=== PATIENT | male | born 1965 | race Caucasian/White ===

== ENCOUNTER 2023-07-19 08:32 | Day surgery (SDC) | payer OTHER ==
[2023-07-19] VITALS (8 sets, daily range): BP systolic 121–147; BP diastolic 72–95; PULSE 62–81; RESP 16; TEMP 97.8; O2SAT 95–98
[~2023-07-19] VITALS: Ht 177.8 cm; Wt 80.4 kg
[2023-07-19] MEDS ORDERED: CEVI30CA12 PO (08:56)
[2023-07-19] MEDS ORDERED: HYDR-3973 PO (08:56)
[2023-07-19] MEDS ORDERED: VITA-268 PO (08:56)
[2023-07-19] MEDS ORDERED: LYR25C PO (08:56)
[2023-07-19] MEDS ORDERED: FAMO20TA8 PO (08:56)
[2023-07-19] MEDS ORDERED: VALA500T41 PO (08:56)
[2023-07-19] MEDS ORDERED: LEVO50TA PO (08:56)
[2023-07-19] MEDS ORDERED: LIDOcaine 1% 30ml preserv. free vial SQ STA (08:57)
--- NOTE | 2023-07-19 09:40 | NUR ---
Dr. Navas at bedside for procedure. Unable to visualize node on ultrasound. Dr. Navas will take the patient to CT to find the node for marking and then use US guided for procedure.
== END 2023-07-19 10:55 | disposition home or self-care (01) ==
LOC: SSTAY O 08:32
PROVIDERS: ATTEND Radiology Diagnostic Radiology
DX: R59.0 Localized enlarged lymph nodes (principal); C09.9 Malignant neoplasm of tonsil, unspecified; Z79.899 Other long term (current) drug therapy
CPT/HCPCS: 10009